=== PATIENT | male | born 1990 | race Native Hawaiian/Other Pacific Islander ===

== ENCOUNTER 2016-12-08 16:00 | Outpatient (CLI) | payer BC | END 2016-12-08 19:50 | disposition home or self-care (01) | LOC: RAD 16:00 | DX: M25.512 Pain in left shoulder (principal) ==

== ENCOUNTER 2018-10-17 16:00 | Outpatient (CLI) | payer BC | END 2018-10-17 19:14 | disposition home or self-care (01) | LOC: LABW 16:00 | DX: Z98.52 Vasectomy status (principal) | CPT/HCPCS: 89320 ==